=== PATIENT | male | born 1965 | race Hispanic/Latino ===

== ENCOUNTER 2021-09-03 20:41 | Observation (INO) | payer MEDICAID ==
[2021-09-03] MEDS ORDERED: NITROGLYCERIN 0.4 MG TAB SUBL SL PRN (21:10)
[2021-09-03] MEDS ORDERED: MORPHINE 2 MG/1 ML INJ IV ONE (21:10)
[2021-09-03 21:31] LABS: Basophils % (Auto) 0.4 % (0.0-1.8); Eosinophils % (Auto) 0.8 % (0.0-4.3); Hematocrit 38.3 % (35.5-45.6); Hemoglobin 12.7 gm/dl (11.8-15.2); Lymphocytes # (Auto) 0.8 K/mm3 (1.2-5.4); Lymphocytes % (Auto) 15.4 % (13.4-35.0); Mean Corpuscular HGB Conc 33 % (32-34); Mean Corpuscular Volume 92 fl (84-94); Monocytes # (Auto) 0.6 K/mm3 (0.0-0.8); Monocytes % (Auto) 11.8 % (0.0-7.3); Platelet Count 138 K/mm3 (140-440); Red Blood Count 4.17 M/mm3 (3.65-5.03); Red Cell Distribution Width 14.1 % (13.2-15.2)
[2021-09-03 21:36] LABS: INR 0.97 (0.87-1.13)
[2021-09-03 21:37] LABS: Partial Thromboplastin Time 25.4 Sec. (24.2-36.6)
[2021-09-03 21:52] LABS: Alanine Aminotransferase 31 units/L (7-56); BUN/Creatinine Ratio 17; Blood Urea Nitrogen 20 mg/dL (9-20); Hemolysis Index 9
--- NOTE | 2021-09-03 22:07 | Emergency Department Report ---
ED Chest Pain HPI - General Chief Complaint: Chest Pain Stated Complaint: CHEST PAIN Time Seen by Provider: 09/03/21 20:52 Source: EMS Mode of arrival: Stretcher Limitations: No Limitations - History of Present Illness Initial Comments: Patient is a 55-year-old male with history of hypertension and diabetes who presents to emergency department complaining of chest pain. Patient also has a pacemaker in place. Patient states his pain is sharp and is located substernally. He states this feels like previous heart attack. - Related Data Allergies Allergy/AdvReac Type Severity Reaction Status Date / Time No Known Allergies Allergy Verified 09/03/21 20:49 Heart Score - HEART Score History: Moderately suspicious EKG: Non-specific Age: 45-65 Risk factors: > 3 risk factors or hx of atherosclerotic disease Troponin: < normal limit HEART Score: 5 - EKG Read Time Time EKG Completed: 20:41 EKG Read Time: 20:45 ED Review of Systems ROS: Stated complaint: CHEST PAIN Other details as noted in HPI Constitutional: denies: chills, fever Eyes: denies: eye pain ENT: denies: throat pain Respiratory: denies: cough, orthopnea Cardiovascular: chest pain Endocrine: no symptoms reported Gastrointestinal: as per HPI Genitourinary: as per HPI Musculoskeletal: as per HPI Skin: denies: rash Neurological: denies: headache, weakness Psychiatric: denies: anxiety, depression Hematological/Lymphatic: denies: easy bleeding ED Past Medical Hx - Past Medical History Hx Heart Attack/AMI: Yes - Surgical History Past Surgical History?: Yes ED Physical Exam - General Limitations: No Limitations General appearance: alert, in distress (2/2 pain) - Head Head exam: Present: atraumatic, normocephalic - Eye Eye exam: Present: normal appearance - ENT ENT exam: Present: mucous membranes moist - Neck Neck exam: Present: normal inspection - Respiratory Respiratory exam: Present: normal lung sounds bilaterally. Absent: respiratory distress - Cardiovascular Cardiovascular Exam: Present: regular rate, normal rhythm. Absent: systolic murmur, diastolic murmur, rubs, gallop - GI/Abdominal GI/Abdominal exam: Present: soft, normal bowel sounds - Rectal Rectal exam: Present: deferred - Back Exam Back exam: Present: normal inspection - Neurological Exam Neurological exam: Present: alert, oriented X3 - Psychiatric Psychiatric exam: Present: normal affect, normal mood - Skin Skin exam: Present: warm, dry, intact, normal color. Absent: rash ED Course Vital Signs 09/03/21 09/03/21 09/03/21 20:42 22:06 22:12 Temperature 97.8 F Pulse Rate 60 89 Respiratory 18 Rate Blood Pressure Blood Pressure 100/61 [Right] O2 Sat by Pulse 95 97 Oximetry 09/03/21 09/03/21 09/03/21 22:19 22:30 22:46 Temperature Pulse Rate 60 60 Respiratory 10 L 15 Rate Blood Pressure 100/67 120/69 Blood Pressure [Right] O2 Sat by Pulse 98 97 99 Oximetry 09/03/21 09/03/21 09/03/21 23:00 23:16 23:30 Temperature Pulse Rate 60 59 L 60 Respiratory 11 L 10 L 12 Rate Blood Pressure 128/64 126/75 122/66 Blood Pressure [Right] O2 Sat by Pulse 99 98 99 Oximetry - Reevaluation(s) Reevaluation #1: 09/03/21 22:05 Reviewed patient's labs and they are notable for a normal troponin. Given this repeat troponin is ordered but patient has elevated heart score to 5 and patient to be admitted for further management. Pain control has been ordered for patient. Reevaluation #2: 09/04/21 00:55 Still with chest pain, repeat morphine is ordered. Repeat EKG is asked for. I have reviewed his labs which show a negative repeat troponin. ED Medical Decision Making - Lab Data Result diagrams: 09/03/21 20:57 09/03/21 20:57 - EKG Data -: EKG Interpreted by Me No standard instances Rhythm: other (AV paced rhythm) [place]/QRS: left axis deviation - Radiology Data Radiology results: report reviewed, image reviewed - Medical Decision Making This is a 55-year-old male presents emergency department complaint of chest pa in. On exam patient appears in distress secondary to pain but EKG does not show any acute STEMI. I have ordered chest pain order set and this has resulted with no elevated troponin at this time. Given this we will treat with pain control, nitro and patient likely to be admitted. Patient is pending repeat troponin. Critical care attestation.: If time is entered above; I have spent that time in minutes in the direct care of this critically ill patient, excluding procedure time. ED Disposition Clinical Impression: Chest pain Disposition: 09 ADMITTED INPATIENT Is pt being admited?: Yes Does the pt Need Aspirin: Yes Condition: Stable Instructions: Nonspecific Chest Pain, Adult
[2021-09-03] MEDS ORDERED: SODIUM CHLORIDE 0.9% 1000 ML 1,000 ML ONE (22:21)
--- NOTE | 2021-09-03 22:29 | XRay Report ---
CHEST 1 VIEW 09/03/2021 9:00 PM INDICATION / CLINICAL INFORMATION: Chest pain. COMPARISON: None available. FINDINGS: SUPPORT DEVICES: There is a dual chamber left subclavian transvenous pacemaker with the tips of the p acing leads overlying the right atrial appendage and right ventricular apex. HEART / MEDIASTINUM: The heart size and pulmonary vasculature are normal. The aorta is normal in grace sana. LUNGS / PLEURA: No significant pulmonary or pleural abnormality. No pneumothorax. ADDITIONAL FINDINGS: There are surgical changes in the lower cervical spine. IMPRESSION: No acute findings. Signer Name: Dread Kraft MD Signed: 09/03/2021 10:25 PM Workstation Name: [id number]
[2021-09-03] MEDS ORDERED: SODIUM CHLORIDE 0.9% 1000 ML 1,000 ML IV ONE (22:32)
[2021-09-03] MEDS ORDERED: MORPHINE 4 MG/1 ML INJ ONE (23:08)
[2021-09-03] MEDS ORDERED: MORPHINE 4 MG/1 ML INJ IV ONE (23:12)
[2021-09-04] MEDS ORDERED: MORPHINE 4 MG/1 ML INJ IV ONE (00:27)
[2021-09-04] MEDS ORDERED: ACETAMINOPHEN 325 MG TAB PO PRN (01:42)
[2021-09-04] MEDS ORDERED: NITROGLYCERIN 0.4 MG TAB SUBL SL PRN (01:42)
[2021-09-04] MEDS ORDERED: traMADol 50 MG TAB PO PRN (01:42)
[2021-09-04] MEDS ORDERED: SODIUM CHLORIDE 0.9% 1000 ML 1,000 ML IV SCH (01:45)
--- NOTE | 2021-09-04 01:49 | History and Physical Report ---
History of Present Illness Date of examination: 09/04/21 Date of admission: 09/04/21 00:56 Chief complaint: Chest pain History of present illness: 55-year-old male with history of hypertension and diabetes, pacemaker and possibly stent was brought to emergency department complaining of chest pain. Chest pain is sharp 5/10 located substernally. patient states this feels like previous heart attack. In the emergency room initial cardiac enzyme is negative troponin is 0.010.patient has elevated heart score to 5 and patient to be admitted for further management. Pain control has been ordered for patient. Cardiology consulted Past History Past Medical History: CAD, diabetes, hypertension Past Surgical History: Other (Coronary stent) Medications and Allergies Allergies Allergy/AdvReac Type Severity Reaction Status Date / Time No Known Allergies Allergy Verified 09/03/21 20:49 Active Meds: Active Medications Nitroglycerin (Nitroglycerin 0.4 Mg Tab Subl) 0.4 mg SL .Q5MIN PRN PRN Reason: Chest Pain Last Admin: 09/03/21 22:06 Dose: 0.4 mg Documented by: Review of Systems All systems: negative Cardiovascular: chest pain, shortness of breath Exam - Constitutional Vitals: Temp Pulse Resp BP Pulse Ox 97.8 F 60 12 122/66 99 09/03/21 20:42 09/03/21 23:30 09/03/21 23:30 09/03/21 23:30 09/03/21 23:30 General appearance: Present: no acute distress, well-nourished - EENT Eyes: Present: PERRL ENT: hearing intact, clear oral mucosa - Neck Neck: Present: supple, normal ROM - Respiratory Respiratory effort: normal Respiratory: bilateral: diminished - Cardiovascular Heart Sounds: Present: S1 & S2. Absent: rub, click - Extremities Extremities: pulses symmetrical, No edema Peripheral Pulses: within normal limits - Abdominal General gastrointestinal: Present: soft, non-tender, non-distended, normal bowel sounds Male genitourinary: Present: normal - Integumentary Integumentary: Present: clear, warm, dry - Musculoskeletal Musculoskeletal: gait normal, strength equal bilaterally - Psychiatric Psychiatric: appropriate mood/affect, intact judgment & insight - Neurologic Neurologic: CNII-XII intact, moves all extremities HEART Score - HEART Score EKG: Non-specific Age: 45-65 Risk factors: > 3 risk factors or hx of atherosclerotic disease Troponin: Troponin T < 0.010 ng/mL (0.00-0.029) 09/03/21 23:47 Troponin: < normal limit Results - Labs CBC & Chem 7: 09/03/21 20:57 09/03/21 20:57 Labs: Laboratory Last Values WBC 5.4 K/mm3 (4.5-11.0) 09/03/21 20:57 RBC 4.17 M/mm3 (3.65-5.03) 09/03/21 20:57 Hgb 12.7 gm/dl (11.8-15.2) 09/03/21 20:57 Hct 38.3 % (35.5-45.6) 09/03/21 20:57 MCV 92 fl (84-94) 09/03/21 20:57 MCH 31 pg (28-32) 09/03/21 20:57 MCHC 33 % (32-34) 09/03/21 20:57 RDW 14.1 % (13.2-15.2) 09/03/21 20:57 Plt Count 138 K/mm3 (140-440) L 09/03/21 20:57 Lymph % (Auto) 15.4 % (13.4-35.0) 09/03/21 20:57 [place] % (Auto) 11.8 % (0.0-7.3) H 09/03/21 20:57 Eos % (Auto) 0.8 % (0.0-4.3) 09/03/21 20:57 Baso % (Auto) 0.4 % (0.0-1.8) 09/03/21 20:57 Lymph # (Auto) 0.8 K/mm3 (1.2-5.4) L 09/03/21 20:57 [place] # (Auto) 0.6 K/mm3 (0.0-0.8) 09/03/21 20:57 Eos # (Auto) 0.0 K/mm3 (0.0-0.4) 09/03/21 20:57 Baso # (Auto) 0.0 K/mm3 (0.0-0.1) 09/03/21 20:57 Seg Neutrophils % 71.6 % (40.0-70.0) H 09/03/21 20:57 Seg Neutrophils # 3.8 K/mm3 (1.8-7.7) 09/03/21 20:57 PT 14.0 Sec. (12.2-14.9) 09/03/21 20:57 INR 0.97 (0.87-1.13) 09/03/21 20:57 APTT 25.4 Sec. (24.2-36.6) 09/03/21 20:57 Sodium 143 mmol/L (137-145) 09/03/21 20:57 Potassium 3.6 mmol/L (3.6-5.0) 09/03/21 20:57 Chloride 105.6 mmol/L (98-107) 09/03/21 20:57 Carbon Dioxide 21 mmol/L (22-30) L 09/03/21 20:57 Anion Gap 20 mmol/L 09/03/21 20:57 BUN 20 mg/dL (9-20) 09/03/21 20:57 Creatinine 1.2 mg/dL (0.8-1.3) 09/03/21 20:57 Estimated GFR > 60 ml/min 09/03/21 20:57 BUN/Creatinine Ratio 17 % 09/03/21 20:57 Glucose 146 mg/dL (75-100) H 09/03/21 20:57 POC Glucose 151 mg/dL (70-105) H 09/03/21 20:48 Calcium 9.0 mg/dL (8.4-10.2) 09/03/21 20:57 Total Bilirubin 0.80 mg/dL (0.1-1.2) 09/03/21 20:57 AST 23 units/L (5-40) 09/03/21 20:57 ALT 31 units/L (7-56) 09/03/21 20:57 Alkaline Phosphatase 92 units/L (35-129) 09/03/21 20:57 Troponin T < 0.010 ng/mL (0.00-0.029) 09/03/21 23:47 Total Protein 7.1 g/dL (6.3-8.2) 09/03/21 20:57 Albumin 4.0 g/dL (3.9-5) 09/03/21 20:57 Albumin/Globulin Ratio 1.3 % 09/03/21 20:57 Blood Type A POSITIVE 09/03/21 20:57 Antibody Screen Negative 09/03/21 20:57 - Imaging and Cardiology Chest x-ray: report reviewed Assessment and Plan VTE prophylaxis?: Chemical Plan of care discussed with patient/family: Yes - Patient Problems (1) Acute coronary syndrome Current Visit: Yes Status: Acute Plan to address problem: Admit the patient to the telemetry. Aspirin 325 mg p.o. daily. Lipitor 40 mg p.o. daily. Nitroglycerin 1 inch to the chest wall every 6 hours. Serial cardiac enzymes. Echocardiogram. Cardiology consultation (2) Diabetes Current Visit: Yes Status: Acute Plan to address problem: Accu-Chek before meals and at bedtime with Humalog moderate dose coverage. Diabetic education. Continue home medication (3) Hypertension Current Visit: Yes Status: Acute Plan to address problem: Hydralazine 10 mg IV every 6 hours as needed. We continue the home medication. Cardiology evaluation (4) Coronary artery disease Current Visit: Yes Status: Acute Plan to address problem: Aspirin 325 mg p.o. daily. Lipitor 40 mg p.o. daily. Nitroglycerin 1 inch to the chest wall every 6 hours. Serial cardiac enzymes. Echocardiogram. Cardiology consultation (5) DVT prophylaxis Current Visit: Yes Status: Acute Plan to address problem: Heparin 5000 units subcu every 8 hours for DVT prophylaxis. Pepcid 20 mg p.o. twice daily for GI prophylaxis. Patient is a full code
[2021-09-04] MEDS ORDERED: DEXTROSE 50% IN WATER (25GM) 50 ML SYRINGE IV PRN (01:51)
[2021-09-04] MEDS ORDERED: MORPHINE 2 MG/1 ML INJ ONE (05:34)
[2021-09-04] MEDS: MORPHINE 4 MG/1 ML INJ IV PRN ×3 (05:52→19:50)
[2021-09-04] MEDS ORDERED: HEPARIN 5,000 UNIT/1 ML VIAL SUB-Q SCH (06:00)
[2021-09-04 06:16] LABS: Basophils % (Auto) 0.3 % (0.0-1.8); Eosinophils % (Auto) 1.1 % (0.0-4.3); Hematocrit 37.9 % (35.5-45.6); Hemoglobin 12.3 gm/dl (11.8-15.2); Lymphocytes # (Auto) 0.9 K/mm3 (1.2-5.4); Lymphocytes % (Auto) 20.3 % (13.4-35.0); Mean Corpuscular HGB Conc 33 % (32-34); Mean Corpuscular Volume 94 fl (84-94); Monocytes # (Auto) 0.6 K/mm3 (0.0-0.8); Monocytes % (Auto) 12.7 % (0.0-7.3); Platelet Count 121 K/mm3 (140-440); Red Blood Count 4.02 M/mm3 (3.65-5.03); Red Cell Distribution Width 14.5 % (13.2-15.2)
[2021-09-04 06:33] LABS: BUN/Creatinine Ratio 19; Blood Urea Nitrogen 17 mg/dL (9-20); Calcium 8.6 mg/dL (8.4-10.2); Hemolysis Index 5
[2021-09-04] MEDS: INSULIN LISPRO 100 UNIT/ML SUB-Q SCH ×4 (07:55→22:03)
[2021-09-04] MEDS ORDERED: MORPHINE 2 MG/1 ML INJ IV NR (10:30)
--- NOTE | 2021-09-04 11:02 | Event Note ---
Patient is seen and examined. Full consultation dictated. Thank you
--- NOTE | 2021-09-04 11:38 | Consultation ---
DATE OF CONSULTATION: 09/04/2021 CARDIOLOGY CONSULTATION REFERRING PHYSICIAN: ER physician. REASON FOR CONSULTATION: Advice and opinion regarding chest pain. HISTORY OF PRESENT ILLNESS: The patient is a 55-year-old gentleman who is in the process of moving from [place] to [place], was here doing outpatient mental health treatment, had an episode of chest pain. History of hypertension, diabetes, pacemaker, underlying atrial fibrillation and has been on Xarelto. Had a catheterization at [facility] in 02/2020 due to chest pain. Two weeks later had a STEMI, apparently, per patient, and had a PCI at [facility] in [place]. He had an episode of chest pain that was sharp and tight as well as shortness of breath yesterday while walking up the stairs, taking his garbage out. He is seen in the Emergency Room and states no further chest pain and feels better, but he states the episode felt like his previous episode last year. He has also had a difficult year as he lost a stepson and his son and his other son committed suicide in May. This obviously created some anxiety and depression for the patient. He is seen in the Emergency Room. Feels much better. No symptoms. PAST MEDICAL HISTORY: As aforementioned. REVIEW OF SYSTEMS: As aforementioned. ALLERGIES: No known drug, food or environmental allergies. INPATIENT AND OUTPATIENT MEDICATIONS: Reviewed. SOCIAL HISTORY: Quit smoking. Nondrinker. No drugs. . PHYSICAL EXAMINATION: VITAL SIGNS: His rhythm is a paced rhythm at 60. His blood pressure is 130/80, he is afebrile. O2 sats 100% on 2 liters. HEENT: Sclerae are anicteric. PERRLA. NECK: Supple, no mass, no JVD. CHEST: Clear to auscultation bilaterally. Good air movement. CARDIAC: Regular S1, S2. ABDOMEN: Soft, nontender, nondistended. Normoactive bowel sounds in 4 quadrants. No mass or bruits. EXTREMITIES: No cyanosis, clubbing, edema. Good peripheral pulses. SKIN: Warm and intact. No rashes. LABORATORY DATA: EKG reveals a ventricular paced rhythm at 60 beats per minute. Troponins negative x2. BMP is unremarkable this morning, aside from elevated sugar. CBC is also unremarkable. Coags yesterday were unremarkable. Chest x-ray yesterday reveals no acute findings. ASSESSMENT: In summary, the patient is a pleasant 55-year-old gentleman: 1. Chest pain with typical and atypical features in the milieu of a past ST-elevation myocardial infarction, percutaneous coronary intervention. EKG reveals a paced rhythm. Troponin negative x2. Currently, chest pain free. Continue aspirin. 2. History of underlying atrial fibrillation with pacemaker placement, using Xarelto and systemic anticoagulation. No history of cardioembolic cerebrovascular accident per the patient. We will discontinue heparin subcutaneously and start subcutaneous Lovenox b.i.d. 3. Diabetes, per primary. 4. Hypertension. 5. Depression/anxiety. At this point, we will check a nuclear stress test, echocardiogram in a.m. He is clinically stable at this point. Thank you for this consultation. I will be happy following with you. TID: [id number] RECEIPT: [id number] MARK/JUAN
--- NOTE | 2021-09-04 12:03 | Electrocardiograph Report ---
[facility] Test Date: 2021-09-03 Test Time: 20:41:56 Pat Name: SHERI MCFADDEN Department: Room: [place] [address] Gender: M Zipper Measurer: : 1965 Requested By: SARAH COOPER Order Number: [id number] Reading MD: Jose G Spencer Measurements Intervals [place] Rate: 60 P: SC: 76 QRS: -81 QRSD: 174 T: 103 QT: 520 QTc: 520 Interpretive Statements Atrial-ventricular dual-paced complexes No previous ECG available for comparison Electronically Signed On 09-04-2021 12:03:32 EST by Jose G Spencer
[2021-09-04] MEDS: ENOXAPARIN 80 MG/0.8 ML INJ SUB-Q SCH ×2 (12:05→21:52)
--- NOTE | 2021-09-04 12:11 | Event Note ---
Date: 09/04/21 Patient was seen and evaluated this morning, and he was found to be hemodynamically stable. The patient is not currently experiencing chest pain. Cardiology was consulted, and recommendations are pending.
[2021-09-04] MEDS: oxyCODONE /ACETAMINOPHEN 5-325MG TAB PO PRN (21:58)
[2021-09-05] MEDS: oxyCODONE /ACETAMINOPHEN 5-325MG TAB PO PRN ×2 (04:01→14:06)
[2021-09-05] MEDS ORDERED: REGADENOSON 0.4 MG/5 ML INJ IV ONE (06:50)
[2021-09-05 07:04] LABS: Basophils % (Auto) 0.5 % (0.0-1.8); Eosinophils # (Auto) 0.1 K/mm3 (0.0-0.4); Eosinophils % (Auto) 1.5 % (0.0-4.3); Hematocrit 36.8 % (35.5-45.6); Hemoglobin 12.2 gm/dl (11.8-15.2); Lymphocytes # (Auto) 0.9 K/mm3 (1.2-5.4); Lymphocytes % (Auto) 26.2 % (13.4-35.0); Mean Corpuscular HGB Conc 33 % (32-34); Mean Corpuscular Volume 92 fl (84-94); Monocytes # (Auto) 0.4 K/mm3 (0.0-0.8); Monocytes % (Auto) 11.1 % (0.0-7.3); Platelet Count 122 K/mm3 (140-440); Red Blood Count 4.02 M/mm3 (3.65-5.03)
[2021-09-05 07:10] LABS: BUN/Creatinine Ratio 14; Blood Urea Nitrogen 11 mg/dL (9-20); Calcium 8.3 mg/dL (8.4-10.2); Hemolysis Index 4
[2021-09-05] MEDS ORDERED: ASPIRIN EC 325 MG TAB PO SCH (10:00)
--- NOTE | 2021-09-05 10:54 | Nuclear Medicine Report ---
APPROVED REPORT Exam: Nuclear Stress Test Indication: Chest pain BMI: 0 Stress Test Details HR Resting HR: 60 bpm Max Heart Rate (APMHR): 164 bpm Target HR (85% APMHR): 139 bpm BP ECG Resting EC% AV pacing. Stress EC% AV pacing. ST Change: Nondiagnostic V-pacing or LBBB Arrhythmia: None Recovery ECG: AV pacing. Recovery ST Change: Nondiagnostic V-pacing or LBBB Recovery Arrhythmia: None Clinical Reason for Termination: Completed protocol Stress Symptoms: None Stress ECG Conclusion Patient was in AV pacing 100% paced,non diagnostic because pf paced rhyth. NM EXAM: Myocardial Perfusion REST/STRESS Imaging Protocol: Rest Tc-99m/Stress Tc-99m 1 day Resting Data Rest SPECT myocardial perfusion imaging was performed in supine position 45 minutes following the intravenous injection of 10 mCi of Tc-99m Myoview. Time of rest injection: 0715 Pharmacologic Stress Pharmacologic stress test was performed by injecting Regadenoson 0.4 mg IV push followed by the intravenous injection of 28 mCi of Tc-99m Myoview. Time of stress injection: 0910 Gated Stress SPECT was performed 30 minutes after stress injection. The images were gated to evaluate regional wall motion and calculate left ventricular ejection fraction. Study Quality Study: excellent Lung Uptake: Normal Study Data TID = 1.19. Perfusion Wall Motion Normal LV systolic function noted post stress with calculated EF of 57%. Nuclear Conclusion ECG Findings: non-diagnostic Clinical Findings: negative for ischemia Nuclear Findings: negative for ischemia Exercise Capacity: not assessed Left Ventricular Function: normal Risk Study: low No significant ischemia noted,with normal LV systolic function post vsodilation. Conclusion Patient was in AV pacing 100% paced,non diagnostic because pf paced rhyth.
[2021-09-05] MEDS: MORPHINE 4 MG/1 ML INJ IV PRN (10:55)
[2021-09-05] MEDS: ENOXAPARIN 80 MG/0.8 ML INJ SUB-Q SCH (10:55)
[2021-09-05] MEDS: INSULIN LISPRO 100 UNIT/ML SUB-Q SCH ×2 (10:58→12:30)
--- NOTE | 2021-09-05 11:52 | Progress Note ---
Assessment and Plan Chest pain Afib- xarelto as OP Pacemaker HTN DM Depression/Anxiety Echo 09/04/2021-EF 60 to 65%, right ventricular systolic function is normal pacemaker lead in right ventricle is present left atrium mildly dilated. Lexiscan MPI stress test 09/05/2021-negative for signs of ischemia with normal L V function Plan: Lexiscan stress test negative. Recommend medical management will initiate metoprolol 25 mg p.o. twice daily Continue aspirin Lipitor and resume Xarelto on discharge Discussed plan of care and importance of medication compliance and follow-up appointments. Patient verbalized understanding and agreement Patient cardiac status stable for discharge Patient should follow-up with Dr. Spencer, [facility] acoustic intelligence specialist, on 10/04/2021 at 3 PM in our [place] office. Phone #[phone] Patient seen in conjunction with Dr. Arce who agrees with this plan of care - Patient Problems (1) Chest pain Current Visit: Yes Status: Acute (2) Coronary artery disease Current Visit: Yes Status: Acute (3) Diabetes Current Visit: Yes Status: Acute (4) Hypertension Current Visit: Yes Status: Acute Subjective Date of service: 09/05/21 Principal diagnosis: chest pain Interval history: Patient for stress test this a.m. Patient sitting in bed in no acute distress Paced rhythm rate of 60s Objective Vital Signs Temp Pulse Resp BP BP Pulse Ox 09/05/21 09:13 128/79 09/05/21 09:12 116/70 09/05/21 09:11 99/65 09/05/21 08:44 118/85 09/05/21 04:45 97.6 F 67 16 127/78 90 09/05/21 00:29 99 09/05/21 00:28 97.9 F 60 16 156/78 96 09/04/21 22:00 60 09/04/21 20:38 97.9 F 60 16 142/89 99 09/04/21 20:15 60 9 L 150/96 99 09/04/21 20:01 60 9 L 156/93 100 09/04/21 19:45 60 10 L 149/91 99 09/04/21 19:31 60 11 L 150/88 99 09/04/21 19:15 60 10 L 136/78 100 09/04/21 19:01 60 8 L 136/85 99 09/04/21 18:47 97.9 F 09/04/21 18:45 60 8 L 145/91 99 09/04/21 18:31 60 10 L 136/85 99 09/04/21 18:15 60 13 139/78 99 09/04/21 18:00 60 14 140/91 99 09/04/21 17:45 60 10 L 145/94 99 09/04/21 17:30 60 11 L 147/99 99 09/04/21 17:16 60 13 129/80 100 09/04/21 17:07 60 12 145/82 100 09/04/21 17:00 60 12 145/82 99 09/04/21 16:46 60 11 L 135/82 100 09/04/21 16:30 60 13 154/91 98 09/04/21 16:16 60 13 135/96 92 09/04/21 16:00 60 11 L 133/82 93 09/04/21 15:45 60 12 134/86 97 09/04/21 15:30 60 9 L 130/84 97 09/04/21 15:16 60 10 L 121/84 95 09/04/21 15:00 60 11 L 128/77 96 09/04/21 14:46 60 8 L 134/84 96 09/04/21 14:30 60 10 L 134/74 98 09/04/21 14:16 60 9 L 149/74 99 09/04/21 14:00 60 10 L 160/76 99 09/04/21 13:46 60 10 L 153/81 99 09/04/21 13:30 60 11 L 153/81 99 09/04/21 13:16 60 11 L 158/79 99 09/04/21 13:00 60 10 L 148/87 99 09/04/21 12:46 63 10 L 150/89 98 09/04/21 12:30 60 10 L 142/75 100 09/04/21 12:16 62 14 142/82 99 09/04/21 12:00 60 9 L 149/86 100 09/04/21 11:46 60 10 L 132/85 100 - Physical Examination General: No Apparent Distress HEENT: Positive: PERRL Cardiac: Positive: Reg Rate and Rhythm Lungs: Positive: clear to auscultation, Normal Breath Sounds Neuro: Positive: Grossly Intact Abdomen: Positive: Soft Skin: Negative: Rash, Suspicious Lesions, Ulceration Extremities: Absent: edema - Labs and Meds Coagulation 09/05/21 Range/Units 05:15 APTT 32.4 (24.2-36.6) Sec. CBC 09/05/21 Range/Units 05:15 WBC 3.5 L (4.5-11.0) K/mm3 RBC 4.02 (3.65-5.03) M/mm3 Hgb 12.2 (11.8-15.2) gm/dl Hct 36.8 (35.5-45.6) % Plt Count 122 L (140-440) K/mm3 Lymph # (Auto) 0.9 L (1.2-5.4) K/mm3 [place] # (Auto) 0.4 (0.0-0.8) K/mm3 Eos # (Auto) 0.1 (0.0-0.4) K/mm3 Baso # (Auto) 0.0 (0.0-0.1) K/mm3 Comprehensive Metabolic Panel 09/05/21 Range/Units 05:15 Sodium 140 (137-145) mmol/L Potassium 3.5 L (3.6-5.0) mmol/L Chloride 102.3 (98-107) mmol/L Carbon Dioxide 25 (22-30) mmol/L BUN 11 (9-20) mg/dL Creatinine 0.8 (0.8-1.3) mg/dL Glucose 107 H (75-100) mg/dL Calcium 8.3 L (8.4-10.2) mg/dL - Imaging and Cardiology EKG: report reviewed Echo: report reviewed - Telemetry EKG Rhythm: Paced
--- NOTE | 2021-09-05 14:25 | Discharge Summary ---
Providers - Providers Date of Admission: 09/04/21 00:56 Date of discharge: 09/05/21 Attending physician: PHILIPPE DAMON MD 09/04/21 Consult to Cardiac Rehabilitation [CONS] Routine Reason For Exam: Phase I 09/04/21 01:42 Consult to Cardiology [CONS] Routine Consulting Provider: ANA ENGLAND Reason For Exam: acs 09/04/21 01:51 Consult to Dietitian/Nutrition [CONS] Routine Physician Instructions: Reason For Exam: Reason for Consult: Diet education Primary care physician: DICE DEALER Hospitalization Reason for admission: Acute chest pain Condition: Stable Pertinent studies: Reviewed. Procedures: Myocardial perfusion scan. Hospital course: The patient is a 55-year-old male past medical history hypertension, type 2 diabetes mellitus, CAD complicated by pacemaker who presented with 5/10 substernal, left-sided chest pain. In the ED the patient was found to have negative troponins x2; however, the patient was admitted due to a heart score of 5. Cardiology was consulted, and the patient underwent a myocardial perfusion scan on 09/05/2021 that was negative for ischemic changes with normal LV function. Patient will continue medical management and was started on metoprolol tartrate 25 mg twice daily in addition to his other home medications. The patient will follow up with Dr. Spencer at [facility] on 10/04/2021 at 3 PM in the [place] office. Patient expresses understanding. Patient is medically safe for discharge. Disposition: 01 HOME / SELF CARE / HOMELESS Final Discharge Diagnosis (Prints w/discharge instructions): Acute chest pain, insulin-dependent type 2 diabetes mellitus, hypertension, CAD, atrial fibrillation on Xarelto, depression, anxiety Time spent for discharge: 45 min Core Measure Documentation - Palliative Care Palliative Care/ Comfort Measures: Not Applicable - Core Measures Any of the following diagnoses?: none Exam - Constitutional Vitals: Temp Pulse Resp BP Pulse Ox 97.6 F 67 16 128/79 90 09/05/21 04:45 09/05/21 04:45 09/05/21 04:45 09/05/21 09:13 09/05/21 04:45 General appearance: Present: no acute distress, well-nourished, obese - EENT Eyes: Present: PERRL, EOM intact ENT: hearing intact, clear oral mucosa, dentition normal - Neck Neck: Present: supple, normal ROM - Respiratory Respiratory effort: normal Respiratory: bilateral: CTA - Cardiovascular Rhythm: regular Heart Sounds: Present: S1 & S2 - Extremities Extremities: no ischemia, pulses intact, pulses symmetrical, No edema, normal te mperature, normal color Peripheral Pulses: within normal limits - Abdominal General gastrointestinal: Present: soft, non-tender, non-distended, normal bowel sounds Male genitourinary: Present: deferred - Rectal Rectal Exam: deferred - Integumentary Integumentary: Present: clear, warm, dry - Musculoskeletal Musculoskeletal: strength equal bilaterally - Psychiatric Psychiatric: appropriate mood/affect, cooperative - Neurologic Neurologic: CNII-XII intact, moves all extremities - Allied Health Allied health notes reviewed: nursing Plan Activity: no restrictions Diet: low fat, low salt Care Plan Goals: Patient is medically cleared for discharge. Assessment: Patient was admitted for acute chest pain that was found to be negative on myocardial perfusion scan performed by cardiology. Patient will follow up with cardiology in clinic on 10/04/2021 at [address] Spencer. Patient is medically ready for discharge. Follow up with: PRIMARY CARE, [Primary Care Provider] - 3-5 Days Forms: Work/School Release Form Prescriptions: AtorvaSTATin [Lipitor] 40 mg PO QHS #30 tablet Metoprolol [Lopressor TAB] 25 mg PO BID #60 tablet
[2021-09-05 15:56] VITALS: BP 136/80
[2021-09-05] MEDS ORDERED: METOPROLOL TARTRATE 25 MG TAB PO SCH (22:00)
--- NOTE | 2021-09-06 17:33 | Electrocardiograph Report ---
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
--- NOTE | 2021-09-06 17:35 | Electrocardiograph Report ---
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
== END 2021-09-05 18:45 | disposition home or self-care (01) ==
LOC: ED 20:41 → 4A 09-04 00:56
PROVIDERS: ADMIT Hospitalist; ATTEND Student in an Organized Health Care Education/Training Program
DX: I24.9 Acute ischemic heart disease, unspecified (principal); I10 Essential (primary) hypertension; I25.10 Atherosclerotic heart disease of native coronary artery without angina pectoris; E11.9 Type 2 diabetes mellitus without complications; R07.89 Other chest pain; F32.9 Major depressive disorder, single episode, unspecified; F41.9 Anxiety disorder, unspecified; Z95.0 Presence of cardiac pacemaker
CPT/HCPCS: 36415; 71045; 78452; 80048; 80053; 82962; 84484; 85025; 85610; 85730; 86850; 86900; 86901; 93005; 93017; 93306; 96361; 96372; 96374; 96376; 99285; A9502; G0378; J1644; J1650; J2270; J2785; J7030; Q0162; Q9967; J1815